=== PATIENT | female | born 1975 | race Caucasian/White ===

== ENCOUNTER 2016-09-20 15:36 | Emergency (ER) | payer OTHER ==
[2016-09-20] MEDS ORDERED: IPRATROPIUM-ALBUTEROL 3 ML NEB INHALATION STA (16:07)
[2016-09-20] MEDS ORDERED: SODIUM CHLORIDE 0.9% 500 ML IV STA (16:07)
[2016-09-20] MEDS ORDERED: BENZONATATE 100 MG CAP PO STA (16:10)
--- NOTE | 2016-09-20 16:10 | ED ---
General Adult HPI - General Chief complaint: Upper Respiratory Infection Stated complaint: MAX/Vomiting Time Seen by Provider: 09/20/16 16:03 Source: patient, RN notes reviewed Mode of arrival: ambulatory Limitations: no limitations - History of Present Illness Initial comments: 40-year-old female presents to the emergency department with a chief complaint of cough cold like symptoms. Patient states she's been sick for about a week or so she was on amoxicillin and steroids however she never got better so she was concerned. Patient states she has had low-grade fevers. Patient states she 's had a few episodes of vomiting a few days ago as well. Patient states she was concerned due to the continued cough so she thought that she should be seen. Patient denies any significant health history related to this. Patient denies any recent chest pain, back pain, abdominal pain, numbness or tingling, dysuria or hematuria, constipation or diarrhea, headaches or visual changes, or any other current symptoms. - Related Data Home Medications Medication Instructions Recorded Confirmed Acetaminophen Tab [Tylenol Tab] 1,000 mg PO Q6HR PRN 09/20/16 09/20/16 Amoxicillin 500 mg PO Q12HR 09/20/16 09/20/16 Levothyroxine Sodium [Synthroid] 75 mcg PO DAILY 09/20/16 09/20/16 Allergies Allergy/AdvReac Type Severity Reaction Status Date / Time aspirin Allergy Rash/Hives Verified 09/20/16 16:14 venom-honey bee Allergy Anaphylaxis Verified 09/20/16 16:14 [bee venom (honey bee)] Review of Systems ROS Statement: Those systems with pertinent positive or pertinent negative responses have been documented in the HPI. ROS Other: All systems not noted in ROS Statement are negative. Past Medical History Past Medical History: Asthma, Thyroid Disorder Additional Past Medical History / Comment(s): WAS CATEGORIZED A PREMIE DUE TO LOW WEIGHT History of Any Multi-Drug Resistant Organisms: None Reported Additional Past Surgical History / Comment(s): D&C X3 Past Psychological History: Anxiety Smoking Status: Former smoker Past Alcohol Use History: Rare Past Drug Use History: None Reported General Exam - General Exam Comments Initial Comments: General: The patient is awake and alert, in no distress, and does not appear acutely ill. Eye: Pupils are equal, round and reactive to light, extra-ocular movements are intact; there is normal conjunctiva bilaterally. No signs of icterus. Ears, nose, mouth and throat: There are moist mucous membranes and no oral lesions. Neck: The neck is supple, there is no tenderness. Cardiovascular: There is a regular rate and rhythm. No murmur, rub or gallop is appreciated. Respiratory: Lungs are clear to auscultation, respirations are non-labored, breath sounds are equal but diminished. No wheezes, stridor, rales, or rhonchi. Gastrointestinal: Soft, non-distended, non-tender abdomen without masses or organomegaly noted. There is no rebound or guarding present. No CVA tenderness. Bowel sounds are unremarkable. Back: There is no tenderness to palpation in the midline. There is no obvious deformity. No rashes noted. Musculoskeletal: Normal ROM, no tenderness, There is no pedal edema. There is no calf tenderness or swelling. Sensation intact. Pulses equal bilaterally 2+. Neurological: CN II-XII intact, There are no obvious motor or sensory deficits. Coordination appears grossly intact. Speech is normal. Skin: Skin is warm and dry and no rashes or lesions are noted. Psychiatric: Cooperative, appropriate mood & affect, normal judgment. Limitations: no limitations Course Vital Signs 09/20/16 09/20/16 09/20/16 15:46 17:13 17:21 Temperature 98.9 F Pulse Rate 110 H 76 76 Respiratory 20 Rate Blood Pressure 135/72 O2 Sat by Pulse 96 Oximetry 09/20/16 17:50 Temperature 104.2 F H Pulse Rate Respiratory Rate Blood Pressure O2 Sat by Pulse Oximetry Medical Decision Making - Medical Decision Making 40-year-old female presents for cough cold runny nose like symptoms. This time patient's lab work and vitals are reviewed. Patient does have a high fever however she is negative for influenza and otherwise negative for any infectious cause. This most likely due to a virus. We did discuss return parameters and follow-up. We discussed Motrin Tylenol. We will give her medication for home to help with the cough. Patient stated that she understood all questions were answered. She will be discharged home. - Lab Data Result diagrams: 09/20/16 17:17 09/20/16 17:17 Lab Results 09/20/16 09/20/16 09/20/16 Range/Units 17:17 17:17 17:17 WBC 8.0 (3.8-10.6) k/uL RBC 4.67 (3.80-5.40) m/uL Hgb 14.1 (11.4-16.0) gm/dL Hct 42.7 (34.0-46.0) % MCV 91.5 (80.0-100.0) fL MCH 30.3 (25.0-35.0) pg MCHC 33.1 (31.0-37.0) g/dL RDW 13.0 (11.5-15.5) % Plt Count 167 (150-450) k/uL Neutrophils % 80 % Lymphocytes % 14 % Monocytes % 4 % Eosinophils % 2 % Basophils % 1 % Neutrophils # 6.4 (1.3-7.7) k/uL Lymphocytes # 1.1 (1.0-4.8) k/uL Monocytes # 0.3 (0-1.0) k/uL Eosinophils # 0.1 (0-0.7) k/uL Basophils # 0.0 (0-0.2) k/uL Sodium 140 (137-145) mmol/L Potassium 4.4 (3.5-5.1) mmol/L Chloride 101 (98-107) mmol/L Carbon Dioxide 28 (22-30) mmol/L Anion Gap 11 mmol/L BUN 11 (7-17) mg/dL Creatinine 0.97 (0.52-1.04) mg/dL Est GFR (MDRD) Af Amer >60 (>60 ml/min/1.73 sqM) Est GFR (MDRD) Non-Af >60 (>60 ml/min/1.73 sqM) Glucose 134 H (74-99) mg/dL Calcium 8.1 L (8.4-10.2) mg/dL Total Bilirubin 0.8 (0.2-1.3) mg/dL AST 29 (14-36) U/L ALT 33 (9-52) U/L Alkaline Phosphatase 83 (38-126) U/L Total Protein 7.0 (6.3-8.2) g/dL Albumin 3.8 (3.5-5.0) g/dL Urine Color Urine Appearance (Clear) Urine pH (5.0-8.0) Ur Specific Reading (1.001-1.035) Urine Protein (Negative) Urine Glucose (UA) (Negative) Urine Ketones (Negative) Urine Blood (Negative) Urine Nitrate (Negative) Urine Bilirubin (Negative) Urine Urobilinogen (<2.0) mg/dL Ur Leukocyte Esterase (Negative) Influenza Type A RNA Not Detected (Not Detectd) Influenza Type B (PCR) Not Detected (Not Detectd) 09/20/16 Range/Units 18:09 WBC (3.8-10.6) k/uL RBC (3.80-5.40) m/uL Hgb (11.4-16.0) gm/dL Hct (34.0-46.0) % MCV (80.0-100.0) fL MCH (25.0-35.0) pg MCHC (31.0-37.0) g/dL RDW (11.5-15.5) % Plt Count (150-450) k/uL Neutrophils % % Lymphocytes % % Monocytes % % Eosinophils % % Basophils % % Neutrophils # (1.3-7.7) k/uL Lymphocytes # (1.0-4.8) k/uL Monocytes # (0-1.0) k/uL Eosinophils # (0-0.7) k/uL Basophils # (0-0.2) k/uL Sodium (137-145) mmol/L Potassium (3.5-5.1) mmol/L Chloride (98-107) mmol/L Carbon Dioxide (22-30) mmol/L Anion Gap mmol/L BUN (7-17) mg/dL Creatinine (0.52-1.04) mg/dL Est GFR (MDRD) Af Amer (>60 ml/min/1.73 sqM) Est GFR (MDRD) Non-Af (>60 ml/min/1.73 sqM) Glucose (74-99) mg/dL Calcium (8.4-10.2) mg/dL Total Bilirubin (0.2-1.3) mg/dL AST (14-36) U/L ALT (9-52) U/L Alkaline Phosphatase (38-126) U/L Total Protein (6.3-8.2) g/dL Albumin (3.5-5.0) g/dL Urine Color Yellow Urine Appearance Clear (Clear) Urine pH 5.5 (5.0-8.0) Ur Specific Reading 1.009 (1.001-1.035) Urine Protein Negative (Negative) Urine Glucose (UA) Negative (Negative) Urine Ketones Negative (Negative) Urine Blood Negative (Negative) Urine Nitrate Negative (Negative) Urine Bilirubin Negative (Negative) Urine Urobilinogen <2.0 (<2.0) mg/dL Ur Leukocyte Esterase Negative (Negative) Influenza Type A RNA (Not Detectd) Influenza Type B (PCR) (Not Detectd) - Radiology Data Radiology results: report reviewed, image reviewed Disposition Clinical Impression: Fever, Viral syndrome Disposition: HOME SELF-CARE Condition: Stable Instructions: Viral Syndrome (ED) Additional Instructions: Please use medication as discussed. Please follow up with family doctor if symptoms have not improved over the next two days. Please return to the emergency room if your symptoms increase or worsen or for any other concerns. Referrals: Raji De La Paz DO [Primary Care Provider] - 1-2 days Time of Disposition: 18:34
--- NOTE | 2016-09-20 16:39 | XR ---
EXAMINATION TYPE: XR chest 2V DATE OF EXAM: 09/20/2016 4:33 PM COMPARISON: 05/21/2016 HISTORY: Fever TECHNIQUE: Frontal and lateral views of the chest are obtained. FINDINGS: Heart and mediastinum are normal. Lungs are clear. Diaphragm is normal. Bony thorax and so ft tissues appear normal. IMPRESSION: Normal chest
[2016-09-20 17:36] LABS: Basophils % (A) 1 %; CH 31.8; CHCM 34.9; Eosinophils # (A) 0.1 k/uL (0-0.7); Eosinophils % (A) 2 %; HCT 42.7 % (34.0-46.0); HGB 14.1 gm/dL (11.4-16.0); Luc # (Auto) 0.06; Luc % (Auto) 1; Lymphocytes # (A) 1.1 k/uL (1.0-4.8); Lymphocytes % (A) 14 %; MCH 30.3 pg (25.0-35.0); MCHC 33.1 g/dL (31.0-37.0); MCV 91.5 fL (80.0-100.0); Mean Platelet Volume 7.6; Monocytes # (A) 0.3 k/uL (0-1.0); Monocytes % (A) 4 %; Neutrophils # (A) 6.4 k/uL (1.3-7.7); Neutrophils % (A) 80 %; RBC 4.67 m/uL (3.80-5.40); WBC (Perox) 8.14
[2016-09-20 17:49] LABS: ALT 33 U/L (9-52); AST 29 U/L (14-36); Alkaline Phosphatase 83 U/L (38-126); Anion Gap 11 mmol/L; Blood Urea Nitrogen 11 mg/dL (7-17); Calcium 8.1 mg/dL (8.4-10.2); Carbon Dioxide 28 mmol/L (22-30); Chloride 101 mmol/L (98-107); Glucose 134 mg/dL (74-99); Non-African American GFR(MDRD) >60 (>60 ml/min/1.73 sqM); Sodium 140 mmol/L (137-145); Total Bilirubin 0.8 mg/dL (0.2-1.3)
[2016-09-20] MEDS ORDERED: ACETAMINOPHEN TAB 500 MG TAB PO STA (17:51)
[2016-09-20 17:52] LABS: Potassium 4.4 mmol/L (3.5-5.1)
[2016-09-20 18:23] LABS: Appearance,Urine Clear (Clear); Bilirubin,Urine Negative (Negative); Glucose,Urine (UA) Negative (Negative); Ketones,Urine Negative (Negative); Leukocyte Esterase,Urine Negative (Negative); Nitrite,Urine Negative (Negative); PH, Urine 5.5 (5.0-8.0); Protein,Urine Negative (Negative); Specific Gravity,Urine 1.009 (1.001-1.035); UA Billing (MACRO vs. MICRO) CHEM; Urobilinogen,Urine <2.0 mg/dL (<2.0)
[2016-09-20] MEDS ORDERED: IBUPROFEN 600 MG STARTER PACK 4 TAB BTL PO STA (18:34)
[2016-09-20 19:04] VITALS: BP 125/67; PULSE 116; RESP 16; TEMP 102.4
== END 2016-09-20 19:13 | disposition home or self-care (01) ==
LOC: EC 15:36
DX: B34.9 Viral infection, unspecified (principal); E07.9 Disorder of thyroid, unspecified; Z79.899 Other long term (current) drug therapy; Z88.6 Allergy status to analgesic agent; Z87.891 Personal history of nicotine dependence
CPT/HCPCS: 36415; 71020; 80053; 81003; 85025; 87040; 87086; 87502; 94640; 96360; 96361; 99284

== ENCOUNTER 2016-09-22 04:05 | Emergency (ER) | payer OTHER ==
[2016-09-22 04:16] VITALS: BP 114/59; RESP 18; TEMP 97.7
[2016-09-22] MEDS ORDERED: SODIUM CHLORIDE 0.9% 500 ML IV STA (04:30)
[2016-09-22] MEDS ORDERED: ACETAMINOPHEN IV (For NPO) 1,000 MG in SALINE 1 100ML.BAG IVPB STA (04:31)
[2016-09-22] MEDS ORDERED: IPRATROPIUM-ALBUTEROL 3 ML NEB INHALATION STA (04:31)
--- NOTE | 2016-09-22 04:34 | ED ---
General Adult HPI - General Chief complaint: Upper Respiratory Infection Stated complaint: vomiting Time Seen by Provider: 09/22/16 04:15 Source: patient, RN notes reviewed, old records reviewed Mode of arrival: ambulatory Limitations: no limitations - History of Present Illness Initial comments: This is a 40-year-old female with a history of asthma who was seen here 2 days ago and diagnosed with a viral infection after one week of antibiotics and steroids and not feeling that she was getting better who is back today complaining of a persistent cough she also had nausea vomiting and midepigastric pain. She states the pain is 4-5-6/10 in severity. Aching in nature not anywhere else on her abdomen. She has a cough with the middle minimal amount of phlegm no fevers chills or sweats or other symptoms no overt chest pain. - Related Data Home Medications Medication Instructions Recorded Confirmed Acetaminophen Tab [Tylenol Tab] 1,000 mg PO Q6HR PRN 09/20/16 09/22/16 Amoxicillin 500 mg PO Q12HR 09/20/16 09/22/16 Levothyroxine Sodium [Synthroid] 75 mcg PO DAILY 09/20/16 09/22/16 Previous Rx's Medication Instructions Recorded Amoxicillin/Potassium Clav 1 tab PO Q12HR #20 tab 09/22/16 [Augmentin 875-125 Tablet] predniSONE 20 mg PO BID #10 tab 09/22/16 Allergies Allergy/AdvReac Type Severity Reaction Status Date / Time aspirin Allergy Rash/Hives Verified 09/22/16 04:16 venom-honey bee Allergy Anaphylaxis Verified 09/22/16 04:16 [bee venom (honey bee)] Review of Systems ROS Statement: Those systems with pertinent positive or pertinent negative responses have been documented in the HPI. ROS Other: All systems not noted in ROS Statement are negative. Past Medical History Past Medical History: Asthma, Thyroid Disorder Additional Past Medical History / Comment(s): WAS CATEGORIZED A PREMIE DUE TO LOW WEIGHT History of Any Multi-Drug Resistant Organisms: None Reported Additional Past Surgical History / Comment(s): D&C X3 Past Psychological History: Anxiety Smoking Status: Former smoker Past Alcohol Use History: Rare Past Drug Use History: None Reported General Exam - General Exam Comments Initial Comments: This is a well-developed well-nourished awake alert female Limitations: no limitations General appearance: alert, in no apparent distress Head exam: Present: atraumatic, normocephalic, normal inspection Eye exam: Present: normal appearance, PERRL, EOMI. Absent: scleral icterus, conjunctival injection, periorbital swelling ENT exam: Present: normal exam, mucous membranes moist Neck exam: Present: normal inspection. Absent: tenderness, meningismus, lymphadenopathy Respiratory exam: Present: wheezes, decreased breath sounds. Absent: respiratory distress, rales, rhonchi, stridor Cardiovascular Exam: Present: regular rate, normal rhythm, normal heart sounds. Absent: systolic murmur, diastolic murmur, rubs, gallop, clicks GI/Abdominal exam: Present: soft, tenderness (Mild epigastric tenderness to palpation no guarding rebound masses or bruits), normal bowel sounds. Absent: distended, guarding, rebound, rigid Extremities exam: Present: normal inspection, full ROM, normal capillary refill. Absent: tenderness, pedal edema, joint swelling, calf tenderness Back exam: Present: normal inspection Neurological exam: Present: alert, oriented X3, CN II-XII intact Psychiatric exam: Present: normal affect, normal mood Skin exam: Present: warm, dry, intact, normal color. Absent: rash Course Vital Signs 09/22/16 09/22/16 09/22/16 04:11 04:55 05:04 Temperature 97.7 F Pulse Rate 77 76 76 Respiratory 18 Rate Blood Pressure 114/59 O2 Sat by Pulse 95 Oximetry Medical Decision Making - Medical Decision Making Patient is feeling much improved she will be discharged placed on antibiotic steroids she does have an inhaler is new at home. - Lab Data Result diagrams: 09/22/16 05:00 09/22/16 05:00 Lab Results 09/22/16 09/22/16 Range/Units 05:00 05:00 WBC 5.0 (3.8-10.6) k/uL RBC 4.65 (3.80-5.40) m/uL Hgb 14.2 (11.4-16.0) gm/dL Hct 42.4 (34.0-46.0) % MCV 91.3 (80.0-100.0) fL MCH 30.5 (25.0-35.0) pg MCHC 33.4 (31.0-37.0) g/dL RDW 13.0 (11.5-15.5) % Plt Count 156 (150-450) k/uL Neutrophils % 55 % Lymphocytes % 26 % Monocytes % 6 % Eosinophils % 9 % Basophils % 1 % Neutrophils # 2.7 (1.3-7.7) k/uL Lymphocytes # 1.3 (1.0-4.8) k/uL Monocytes # 0.3 (0-1.0) k/uL Eosinophils # 0.4 (0-0.7) k/uL Basophils # 0.0 (0-0.2) k/uL Sodium 144 (137-145) mmol/L Potassium 3.9 (3.5-5.1) mmol/L Chloride 104 (98-107) mmol/L Carbon Dioxide 31 H (22-30) mmol/L Anion Gap 9 mmol/L BUN 12 (7-17) mg/dL Creatinine 0.96 (0.52-1.04) mg/dL Est GFR (MDRD) Af Amer >60 (>60 ml/min/1.73 sqM) Est GFR (MDRD) Non-Af >60 (>60 ml/min/1.73 sqM) Glucose 170 H (74-99) mg/dL Calcium 8.4 (8.4-10.2) mg/dL Magnesium 2.0 (1.6-2.3) mg/dL Total Bilirubin 0.6 (0.2-1.3) mg/dL AST 80 H (14-36) U/L ALT 62 H (9-52) U/L Alkaline Phosphatase 97 (38-126) U/L Total Protein 6.4 (6.3-8.2) g/dL Albumin 3.4 L (3.5-5.0) g/dL Amylase 48 (30-110) U/L Lipase 199 (23-300) U/L - Radiology Data Radiology results: report reviewed (I did review the imaging and report there is some evidence of a limited infiltrate in the right infrahilar region.), image reviewed Disposition Clinical Impression: Pneumonia, Asthmatic bronchitis Disposition: HOME SELF-CARE Condition: Good Instructions: Pneumonia (ED), Bronchospasm (ED) Prescriptions: Amoxicillin/Potassium Clav [Augmentin 875-125 Tablet] 1 tab PO Q12HR #20 tab predniSONE 20 mg PO BID #10 tab
[2016-09-22 04:56] VITALS: PULSE 76
[2016-09-22 05:14] LABS: Basophils % (A) 1 %; CH 31.3; CHCM 34.4; Eosinophils # (A) 0.4 k/uL (0-0.7); Eosinophils % (A) 9 %; HCT 42.4 % (34.0-46.0); HDW 2.89; HGB 14.2 gm/dL (11.4-16.0); Luc % (Auto) 4; Lymphocytes # (A) 1.3 k/uL (1.0-4.8); Lymphocytes % (A) 26 %; MCH 30.5 pg (25.0-35.0); MCHC 33.4 g/dL (31.0-37.0); MCV 91.3 fL (80.0-100.0); Mean Platelet Volume 7.3; Monocytes # (A) 0.3 k/uL (0-1.0); Monocytes % (A) 6 %; Neutrophils # (A) 2.7 k/uL (1.3-7.7); Neutrophils % (A) 55 %; RBC 4.65 m/uL (3.80-5.40); WBC (Perox) 4.84
[2016-09-22 05:21] LABS: ALT 62 U/L (9-52); AST 80 U/L (14-36); Alkaline Phosphatase 97 U/L (38-126); Amylase 48 U/L (30-110); Anion Gap 9 mmol/L; Blood Urea Nitrogen 12 mg/dL (7-17); Calcium 8.4 mg/dL (8.4-10.2); Carbon Dioxide 31 mmol/L (22-30); Chloride 104 mmol/L (98-107); Glucose 170 mg/dL (74-99); Non-African American GFR(MDRD) >60 (>60 ml/min/1.73 sqM); Potassium 3.9 mmol/L (3.5-5.1); Sodium 144 mmol/L (137-145); Total Bilirubin 0.6 mg/dL (0.2-1.3); Total Protein 6.4 g/dL (6.3-8.2)
--- NOTE | 2016-09-22 05:23 | XR ---
EXAMINATION TYPE: XR chest 2V DATE OF EXAM: 09/22/2016 5:15 AM COMPARISON: 09/20/2016 HISTORY: Cough and vomiting TECHNIQUE: Frontal and lateral views of the chest are obtained. FINDINGS: Faint opacities noted in the right infrahilar area and there is possibility of mild infiltrate and at electasis. There is no pneumothorax or pleural effusion. The study is somewhat limited due to shape of the thorax with possible pectus excavatum changes. The cardiac silhouette size is within normal limits. The osseous structures are intact. IMPRESSION: 1. Possible mild infiltrate and atelectasis in the right infrahilar area..
--- NOTE | 2016-09-22 05:25 | XR ---
EXAMINATION TYPE: XR abdomen 1V DATE OF EXAM: 09/22/2016 5:15 AM . CLINICAL HISTORY: Cough and vomiting for last 2 weeks TECHNIQUE: Single supine KUB image of the abdomen is obtained. COMPARISON: None. FINDINGS: Scattered gas is seen in non-distended small bowel loops. There is [id number] fecal material and gas in the colonic bowel loops.. There is no visceromegaly, pneumoperitoneum, or abnor mal calcification appreciated. The lung bases are clear and the osseous structures are intact. IMPRESSION: [id number] fecal material in the colonic bowel loops. Overall nonobstructive bowel gas pattern.
== END 2016-09-22 06:22 | disposition home or self-care (01) ==
LOC: EC 04:05
DX: J18.9 Pneumonia, unspecified organism (principal); J45.909 Unspecified asthma, uncomplicated; Z87.891 Personal history of nicotine dependence; Z88.8 Allergy status to other drugs, medicaments and biological substances; Z91.030 Bee allergy status; Z79.899 Other long term (current) drug therapy; E07.9 Disorder of thyroid, unspecified
CPT/HCPCS: 99283; 96374; 96361; 36415; 94640; 80053; 82150; 83690; 83735; 85025; 71020; 74000; J0131

== ENCOUNTER 2017-02-23 04:01 | Emergency (ER) | payer OTHER ==
[2017-02-23 04:13] VITALS: BP 119/71; PULSE 111; RESP 18; TEMP 100.1
[2017-02-23] MEDS ORDERED: ACETAMINOPHEN TAB 500 MG TAB PO STA (04:14)
[2017-02-23] MEDS ORDERED: IBUPROFEN 800 MG TAB PO STA (04:14)
[2017-02-23] MEDS ORDERED: AMOXIC-POT CLAV 875-125MG 1 EACH TAB PO STA (04:14)
[2017-02-23] MEDS ORDERED: DEXAMETHASONE SOD PHOSPHATE 10 MG/ML 1 ML VIAL IM STA (04:14)
--- NOTE | 2017-02-23 04:16 | ED ---
General Adult HPI - General Chief complaint: ENT Stated complaint: Sore Throat/Fever Time Seen by Provider: 02/23/17 04:09 Source: patient, RN notes reviewed, old records reviewed Mode of arrival: ambulatory Limitations: no limitations - History of Present Illness Initial comments: This is a 41-year-old female to the ER for evaluation of sore throat. Patient sore throat and fever. Difficulty swallowing. 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 Patient states she is not feeling well, is able to open her mouth and swallow but it is painful. No prior history of similar symptoms. No other complaints of shortness of breath no cough. - Related Data Home Medications Medication Instructions Recorded Confirmed Acetaminophen Tab [Tylenol Tab] 1,000 mg PO Q6HR PRN 09/20/16 02/23/17 Previous Rx's Medication Instructions Recorded Amoxicillin/Potassium Clav 1 tab PO Q12HR #14 tab 02/23/17 [Augmentin 875-125 Tablet] Allergies Allergy/AdvReac Type Severity Reaction Status Date / Time aspirin Allergy Rash/Hives Verified 02/23/17 04:13 venom-honey bee Allergy Anaphylaxis Verified 02/23/17 04:13 [bee venom (honey bee)] Review of Systems ROS Statement: Those systems with pertinent positive or pertinent negative responses have been documented in the HPI. ROS Other: All systems not noted in ROS Statement are negative. Past Medical History Past Medical History: Asthma, Thyroid Disorder Additional Past Medical History / Comment(s): WAS CATEGORIZED A PREMIE DUE TO LOW WEIGHT History of Any Multi-Drug Resistant Organisms: None Reported Additional Past Surgical History / Comment(s): D&C X3 Past Psychological History: Anxiety Smoking Status: Never smoker Past Alcohol Use History: Rare Past Drug Use History: None Reported General Exam Limitations: no limitations General appearance: alert, in no apparent distress Head exam: Present: atraumatic, normocephalic, normal inspection Eye exam: Present: normal appearance, PERRL, EOMI. Absent: scleral icterus, conjunctival injection, periorbital swelling ENT exam: Present: normal exam, mucous membranes moist, other (Differential erythema with exudate bilateral) Neck exam: Present: normal inspection. Absent: tenderness, meningismus, lymphadenopathy Respiratory exam: Present: normal lung sounds bilaterally. Absent: respiratory distress, wheezes, rales, rhonchi, stridor Cardiovascular Exam: Present: regular rate, normal rhythm, normal heart sounds. Absent: systolic murmur, diastolic murmur, rubs, gallop, clicks GI/Abdominal exam: Present: soft, normal bowel sounds. Absent: distended, tenderness, guarding, rebound, rigid Extremities exam: Present: normal inspection, full ROM, normal capillary refill. Absent: tenderness, pedal edema, joint swelling, calf tenderness Back exam: Present: normal inspection Neurological exam: Present: alert, oriented X3, CN II-XII intact Psychiatric exam: Present: normal affect, normal mood Skin exam: Present: warm, dry, intact, normal color. Absent: rash Course Vital Signs 02/23/17 04:11 Temperature 100.1 F H Pulse Rate 111 H Respiratory 18 Rate Blood Pressure 119/71 O2 Sat by Pulse 98 Oximetry Medical Decision Making - Medical Decision Making 41 female DLS fever sore throat, positive pharyngitis exudate on exam, patient treated appropriately with antibiotics and will be discharged home Disposition Clinical Impression: Streptococcal sore throat Disposition: HOME SELF-CARE Condition: Good Instructions: Strep Throat (ED) Prescriptions: Amoxicillin/Potassium Clav [Augmentin 875-125 Tablet] 1 tab PO Q12HR #14 tab Referrals: Raji De La Paz DO [Primary Care Provider] - 1-2 days
== END 2017-02-23 04:28 | disposition home or self-care (01) ==
LOC: EC 04:01
DX: J02.0 Streptococcal pharyngitis (principal); Z88.6 Allergy status to analgesic agent; Z91.030 Bee allergy status
CPT/HCPCS: 99283; 96372; J1100

== ENCOUNTER 2017-03-05 19:13 | Emergency (ER) | payer OTHER ==
[2017-03-05 19:19] VITALS: BP 115/71; PULSE 94; RESP 18; TEMP 97.5
[2017-03-05] MEDS ORDERED: predniSONE 50 MG TAB PO STA (19:42)
[2017-03-05] MEDS ORDERED: diphenhydrAMINE 50 MG CAP PO STA (19:42)
[2017-03-05] MEDS ORDERED: FAMOTIDINE 20 MG TAB PO STA (19:43)
--- NOTE | 2017-03-05 19:51 | ED ---
Allergic Reaction HPI - General Chief complaint: Allergic Reaction Stated complaint: hives Time Seen by Provider: 03/05/17 19:20 Source: patient, RN notes reviewed Mode of arrival: ambulatory Limitations: no limitations - History of Present Illness Initial Comments: Patient is a 41-year-old female presents to the emergency room for evaluation of rash. Patient states about 15 minutes before arrival she broke out into hives on her neck, chest, bilateral arms and legs. Patient states that she tried a new brand of baked beans. Patient states she thinks she had an ALLERGIC reaction to it. Patient denies shortness of breath or trouble breathing. Patient states the rash is itchy. Patient denies taking Benadryl or any other medications after she noticed the rash. Patient denies new shampoos, body washes, conditioners, detergents, new plants or pets in the household. - Related Data Previous Rx's Medication Instructions Recorded Famotidine [Pepcid] 20 mg PO DAILY #4 tablet 03/05/17 predniSONE 50 mg PO DAILY #4 tablet 03/05/17 Allergies Allergy/AdvReac Type Severity Reaction Status Date / Time aspirin Allergy Rash/Hives Verified 03/05/17 19:19 venom-honey bee Allergy Anaphylaxis Verified 03/05/17 19:19 [bee venom (honey bee)] Review of Systems ROS Statement: Those systems with pertinent positive or pertinent negative responses have been documented in the HPI. ROS Other: All systems not noted in ROS Statement are negative. Past Medical History Past Medical History: Asthma, Thyroid Disorder Additional Past Medical History / Comment(s): WAS CATEGORIZED A PREMIE DUE TO LOW WEIGHT History of Any Multi-Drug Resistant Organisms: None Reported Additional Past Surgical History / Comment(s): D&C X3 Past Psychological History: Anxiety Smoking Status: Never smoker Past Alcohol Use History: Rare Past Drug Use History: None Reported General Exam - General Exam Comments Initial Comments: Sitting in exam room, no acute distress. Limitations: no limitations General appearance: alert, in no apparent distress Head exam: Present: atraumatic, normocephalic, normal inspection Eye exam: Present: normal appearance ENT exam: Present: normal exam Neck exam: Present: normal inspection Respiratory exam: Present: normal lung sounds bilaterally. Absent: respiratory distress Cardiovascular Exam: Present: regular rate, normal rhythm, normal heart sounds Extremities exam: Present: normal inspection Back exam: Present: normal inspection Neurological exam: Present: alert, oriented X3, CN II-XII intact Psychiatric exam: Present: normal affect, normal mood Skin exam: Present: warm, dry, intact, normal color, urticaria (Multiple urticaria over neck, chest, bilateral arms and legs) Course Vital Signs 03/05/17 19:17 Temperature 97.5 F L Pulse Rate 94 Respiratory 18 Rate Blood Pressure 115/71 O2 Sat by Pulse 95 Oximetry Medical Decision Making - Medical Decision Making Patient is a 41-year-old female presents to the emergency room for evaluation of rash. Rash consistent with hives. Patient states she recently tried a new brand of baked beans and thinks this will cause a rash. Advised patient to refrain from that brand of baked beans. Patient will be sent home with prednisone and Pepcid and advised to take Benadryl as needed. Patient states she understands that was discussed with her. Return parameters discussed. Disposition Clinical Impression: Urticaria Disposition: HOME SELF-CARE Condition: Good Instructions: Urticaria (ED) Additional Instructions: Take medications as directed. Take Benadryl as needed every 4-6 hours. Cool baths/showers. Please follow up with primary care provider in 1-2 days. If any new symptom arises or symptoms worsen, return to ER as soon as possible. Prescriptions: Famotidine [Pepcid] 20 mg PO DAILY #4 tablet predniSONE 50 mg PO DAILY #4 tablet Referrals: Raji De La Paz DO [Primary Care Provider] - 1-2 days Time of Disposition: 19:47
== END 2017-03-05 20:03 | disposition home or self-care (01) ==
LOC: EC 19:13
DX: L50.9 Urticaria, unspecified (principal); Z88.6 Allergy status to analgesic agent; Z91.030 Bee allergy status
CPT/HCPCS: 99283; J7512

== ENCOUNTER → 2017-06-27 | Outpatient (CLI) | payer OTHER ==
[2017-06-27 09:56] LABS: Basophils # (A) 0.1 k/uL (0-0.2); Basophils % (A) 1 %; CH 30.7; CHCM 32.9; Eosinophils # (A) 0.4 k/uL (0-0.7); Eosinophils % (A) 4 %; HCT 45.7 % (34.0-46.0); HGB 14.7 gm/dL (11.4-16.0); Luc # (Auto) 0.13; Luc % (Auto) 2; Lymphocytes # (A) 1.9 k/uL (1.0-4.8); Lymphocytes % (A) 24 %; MCH 30.1 pg (25.0-35.0); MCHC 32.1 g/dL (31.0-37.0); MCV 93.8 fL (80.0-100.0); Mean Platelet Volume 7.6; Monocytes # (A) 0.5 k/uL (0-1.0); Monocytes % (A) 6 %; Neutrophils % (A) 64 %; RBC 4.87 m/uL (3.80-5.40); RDW 13.8 % (11.5-15.5); WBC 7.9 k/uL (3.8-10.6); WBC (Perox) 7.84
[2017-06-27 10:05] LABS: ALT 33 U/L (9-52); AST 18 U/L (14-36); Alkaline Phosphatase 88 U/L (38-126); Anion Gap 8 mmol/L; Blood Urea Nitrogen 14 mg/dL (7-17); Calcium 9.1 mg/dL (8.4-10.2); Carbon Dioxide 26 mmol/L (22-30); Chloride 107 mmol/L (98-107); Cholesterol 196 mg/dL (<200); Glucose 149 mg/dL (74-99); HDL Cholesterol 36 mg/dL (40-60); Non-African American GFR(MDRD) >60 (>60 ml/min/1.73 sqM); Potassium 4.5 mmol/L (3.5-5.1); Sodium 141 mmol/L (137-145); Total Bilirubin 0.4 mg/dL (0.2-1.3); Total Protein 6.6 g/dL (6.3-8.2)
== END | disposition home or self-care (01) ==
LOC: LABWHC1 08:56
PROVIDERS: ATTEND Family Medicine
DX: Z13.220 Encounter for screening for lipoid disorders (principal); Q99.9 Chromosomal abnormality, unspecified; Z87.898 Personal history of other specified conditions
CPT/HCPCS: 36415; 80053; 80061; 82306; 84439; 84443; 85025

== ENCOUNTER 2017-09-16 11:24 | Emergency (ER) | payer SELFPAY ==
--- NOTE | 2017-09-16 12:29 | ED ---
General Adult HPI - General Chief complaint: Chest Pain Stated complaint: arm numbness Time Seen by Provider: 09/16/17 11:54 Source: patient, RN notes reviewed Mode of arrival: ambulatory Limitations: no limitations - History of Present Illness Initial comments: Patient 41-year-old female who presents emergency room today with a chief complaint of cough congestion over the last 2 days. She does admit to positive sputum production. Admits to bodyaches. Admits to feeling hot and cold. States that earlier today partially 10 AM began feeling some left-sided chest pain with some numbness to mid sensation going to left arm. She states it lasted approximately 10 minutes. She states still feeling some discomfort to the left side of the chest wall. Patient denies any other complaints or symptoms. Patient denies any recent shortness of breath, back pain, abdominal pain, nausea or vomiting, numbness or tingling, dysuria or hematuria, constipation or diarrhea, headaches or visual changes, or any other complaints. - Related Data Home Medications Medication Instructions Recorded Confirmed Acetaminophen Tab [Tylenol Tab] 650 mg PO Q6H PRN 09/16/17 09/16/17 diphenhydrAMINE HCL [Benadryl] 25 mg PO DAILY PRN 09/16/17 09/16/17 Previous Rx's Medication Instructions Recorded Oseltamivir [Tamiflu] 75 mg PO Q12HR 5 Days cap 09/16/17 Allergies Allergy/AdvReac Type Severity Reaction Status Date / Time aspirin Allergy Anaphylaxis Verified 09/16/17 12:47 venom-honey bee Allergy Anaphylaxis Verified 09/16/17 12:47 [bee venom (honey bee)] Review of Systems ROS Statement: Those systems with pertinent positive or pertinent negative responses have been documented in the HPI. ROS Other: All systems not noted in ROS Statement are negative. Past Medical History Past Medical History: Asthma, Thyroid Disorder Additional Past Medical History / Comment(s): WAS CATEGORIZED A PREMIE DUE TO LOW WEIGHT History of Any Multi-Drug Resistant Organisms: None Reported Additional Past Surgical History / Comment(s): D&C X3 Past Psychological History: Anxiety Smoking Status: Never smoker Past Alcohol Use History: Rare Past Drug Use History: None Reported General Exam - General Exam Comments Initial Comments: General: The patient is awake and alert, in no distress, and does not appear acutely ill. Eye: Pupils are equal, round and reactive to light, extra-ocular movements are intact. No nystagmus. There is normal conjunctiva bilaterally. No signs of icterus. Ears, nose, mouth and throat: There are moist mucous membranes and no oral lesions. Neck: The neck is supple, there is no tenderness or JVD. Cardiovascular: There is a regular rate and rhythm. No murmur, rub or gallop is appreciated. Mild tenderness to the anterior left-sided chest wall. This does reproduce her pain. Respiratory: Lungs are clear to auscultation, respirations are non-labored, breath sounds are equal. No wheezes, stridor, rales, or rhonchi. Gastrointestinal: Soft, non-distended, non-tender abdomen without masses or organomegaly noted. There is no rebound or guarding present. No CVA tenderness. Bowel sounds are unremarkable. Musculoskeletal: Normal ROM. Strength 5/5. Sensation intact. Pulses equal bilaterally 2+. Neurological: A&O x 3. CN II-XII intact, There are no obvious motor or sensory deficits. Coordination appears grossly intact. Speech is normal. Skin: Skin is warm and dry and no rashes or lesions are noted. Psychiatric: Cooperative, appropriate mood & affect, normal judgment. Limitations: no limitations Course Vital Signs 09/16/17 09/16/17 09/16/17 11:42 12:19 12:49 Temperature 98.9 F Pulse Rate 79 Respiratory 18 24 18 Rate Blood Pressure 144/87 O2 Sat by Pulse 100 Oximetry 09/16/17 09/16/17 14:27 15:00 Temperature 97.5 F L Pulse Rate 66 64 Respiratory 18 20 Rate Blood Pressure 143/64 O2 Sat by Pulse 99 97 Oximetry EKG Findings - EKG Comments: EKG Findings:: EKG performed at 1201: Shows normal sinus rhythm at 60 beats per minute. [place] 172 QRS 66. QT/QTC 384/384. No acute ST changes. Medical Decision Making - Medical Decision Making Patient reexamined at this time shows no signs of distress. She rested comfortably here in the emergency room. Patient daughter was seen here the emergency room test positive for influenza. Patient's symptoms are consistent with influenza here in emergency room. Her cardiac enzymes are negative. Her symptoms started at 10 AM. She has no chest pain at this time she states that her last for approximately 15 minutes. Patient did have a repeat set of cardiac enzymes obtained which are negative. Results were discussed with patient. EKG shows no changes. Patient will be discharged home to follow-up family doctor will be started on Tamiflu for her symptoms. Advised Tylenol ibuprofen for body aches and any fevers. Advised return if symptoms increase worsen. - Lab Data Result diagrams: 09/16/17 12:15 09/16/17 12:15 Lab Results 09/16/17 09/16/17 09/16/17 Range/Units 12:15 12:15 12:15 WBC 7.8 (3.8-10.6) k/uL RBC 4.73 (3.80-5.40) m/uL Hgb 14.5 (11.4-16.0) gm/dL Hct 43.0 (34.0-46.0) % MCV 91.0 (80.0-100.0) fL MCH 30.7 (25.0-35.0) pg MCHC 33.8 (31.0-37.0) g/dL RDW 12.8 (11.5-15.5) % Plt Count 220 (150-450) k/uL Neutrophils % 58 % Lymphocytes % 29 % Monocytes % 5 % Eosinophils % 5 % Basophils % 1 % Neutrophils # 4.5 (1.3-7.7) k/uL Lymphocytes # 2.3 (1.0-4.8) k/uL Monocytes # 0.4 (0-1.0) k/uL Eosinophils # 0.4 (0-0.7) k/uL Basophils # 0.0 (0-0.2) k/uL PT (9.0-12.0) sec INR (<1.2) APTT (22.0-30.0) sec Sodium 144 (137-145) mmol/L Potassium 4.0 (3.5-5.1) mmol/L Chloride 105 (98-107) mmol/L Carbon Dioxide 29 (22-30) mmol/L Anion Gap 10 mmol/L BUN 16 (7-17) mg/dL Creatinine 0.80 (0.52-1.04) mg/dL Est GFR (MDRD) Af Amer >60 (>60 ml/min/1.73 sqM) Est GFR (MDRD) Non-Af >60 (>60 ml/min/1.73 sqM) Glucose 113 H (74-99) mg/dL Calcium 9.0 (8.4-10.2) mg/dL Magnesium 1.9 (1.6-2.3) mg/dL Total Bilirubin 0.6 (0.2-1.3) mg/dL AST 24 (14-36) U/L ALT 26 (9-52) U/L Alkaline Phosphatase 95 (38-126) U/L Total Creatine Kinase 51 (30-135) U/L CK-MB (CK-2) 0.4 (0.0-2.4) ng/mL CK-MB (CK-2) Rel Index 0.8 Troponin I <0.012 (0.000-0.034) ng/mL Total Protein 6.9 (6.3-8.2) g/dL Albumin 3.9 (3.5-5.0) g/dL Influenza Type A RNA (Not Detectd) Influenza Type B (PCR) (Not Detectd) 09/16/17 09/16/17 09/16/17 Range/Units 12:15 12:15 14:20 WBC (3.8-10.6) k/uL RBC (3.80-5.40) m/uL Hgb (11.4-16.0) gm/dL Hct (34.0-46.0) % MCV (80.0-100.0) fL MCH (25.0-35.0) pg MCHC (31.0-37.0) g/dL RDW (11.5-15.5) % Plt Count (150-450) k/uL Neutrophils % % Lymphocytes % % Monocytes % % Eosinophils % % Basophils % % Neutrophils # (1.3-7.7) k/uL Lymphocytes # (1.0-4.8) k/uL Monocytes # (0-1.0) k/uL Eosinophils # (0-0.7) k/uL Basophils # (0-0.2) k/uL PT 11.5 (9.0-12.0) sec INR 1.2 H (<1.2) APTT 24.1 (22.0-30.0) sec Sodium (137-145) mmol/L Potassium (3.5-5.1) mmol/L Chloride (98-107) mmol/L Carbon Dioxide (22-30) mmol/L Anion Gap mmol/L BUN (7-17) mg/dL Creatinine (0.52-1.04) mg/dL Est GFR (MDRD) Af Amer (>60 ml/min/1.73 sqM) Est GFR (MDRD) Non-Af (>60 ml/min/1.73 sqM) Glucose (74-99) mg/dL Calcium (8.4-10.2) mg/dL Magnesium (1.6-2.3) mg/dL Total Bilirubin (0.2-1.3) mg/dL AST (14-36) U/L ALT (9-52) U/L Alkaline Phosphatase (38-126) U/L Total Creatine Kinase 43 (30-135) U/L CK-MB (CK-2) 0.3 (0.0-2.4) ng/mL CK-MB (CK-2) Rel Index 0.7 Troponin I <0.012 (0.000-0.034) ng/mL Total Protein (6.3-8.2) g/dL Albumin (3.5-5.0) g/dL Influenza Type A RNA Not Detected (Not Detectd) Influenza Type B (PCR) Not Detected (Not Detectd) Disposition Clinical Impression: Influenza Disposition: HOME SELF-CARE Condition: Good Instructions: Influenza (ED) Additional Instructions: Please use medication as prescribed. Please follow up with the family doctor in the next 1-2 days. Please return to emergency room if any symptoms increase or worsen or for any other concerns. Prescriptions: Oseltamivir [Tamiflu] 75 mg PO Q12HR 5 Days cap Referrals: None,Stated [Primary Care Provider] - 1-2 days Ranjan Holloway DO [STAFF PHYSICIAN] - 1-2 days Time of Disposition: 15:46
[2017-09-16 12:33] LABS: Basophils % (A) 1 %; Eosinophils # (A) 0.4 k/uL (0-0.7); Eosinophils % (A) 5 %; HGB 14.5 gm/dL (11.4-16.0); Lymphocytes # (A) 2.3 k/uL (1.0-4.8); Lymphocytes % (A) 29 %; MCH 30.7 pg (25.0-35.0); MCHC 33.8 g/dL (31.0-37.0); Mean Platelet Volume 7.6; Monocytes # (A) 0.4 k/uL (0-1.0); Monocytes % (A) 5 %; Neutrophils # (A) 4.5 k/uL (1.3-7.7); Neutrophils % (A) 58 %; Platelet Count 220 k/uL (150-450); RBC 4.73 m/uL (3.80-5.40); RDW 12.8 % (11.5-15.5); WBC 7.8 k/uL (3.8-10.6)
--- NOTE | 2017-09-16 12:38 | XR ---
EXAMINATION TYPE: XR chest 2V DATE OF EXAM: 09/16/2017 COMPARISON: Chest x-ray September 22, 2016 HISTORY: Chest pain per order. Flulike symptoms per patient. TECHNIQUE: Frontal and lateral views of the chest are obtained. FINDINGS: There is no focal air space opacity, pleural effusion, or pneumothorax seen. The cardiac silhouette size is within normal limits. Spine is straightened on lateral view similar to prior. IMPRESSION: No suspicious acute cardiopulmonary process on current study.
[2017-09-16 13:00] LABS: Creatine Kinase 51 U/L (30-135)
[2017-09-16 13:03] LABS: INR 1.2 (<1.2); Partial Thromboplastin Time 24.1 sec (22.0-30.0); Prothrombin Time 11.5 sec (9.0-12.0)
[2017-09-16 13:12] LABS: ALT 26 U/L (9-52); AST 24 U/L (14-36); Albumin 3.9 g/dL (3.5-5.0); Alkaline Phosphatase 95 U/L (38-126); Anion Gap 10 mmol/L; Blood Urea Nitrogen 16 mg/dL (7-17); Carbon Dioxide 29 mmol/L (22-30); Chloride 105 mmol/L (98-107); Creatine Kinase MB 0.4 ng/mL (0.0-2.4); Glucose 113 mg/dL (74-99); Magnesium 1.9 mg/dL (1.6-2.3); Sodium 144 mmol/L (137-145); Total Bilirubin 0.6 mg/dL (0.2-1.3); Total Protein 6.9 g/dL (6.3-8.2); Troponin I <0.012 ng/mL (0.000-0.034)
[2017-09-16 15:04] LABS: Creatine Kinase 43 U/L (30-135)
[2017-09-16 15:16] LABS: Creatine Kinase MB 0.3 ng/mL (0.0-2.4); Troponin I <0.012 ng/mL (0.000-0.034)
[2017-09-16 15:56] VITALS: BP 133/71; PULSE 57; RESP 12; TEMP 98.5
== END 2017-09-16 16:00 | disposition home or self-care (01) ==
LOC: EC 11:24
DX: J11.1 Influenza due to unidentified influenza virus with other respiratory manifestations (principal); R20.0 Anesthesia of skin; Z88.6 Allergy status to analgesic agent; Z91.030 Bee allergy status
CPT/HCPCS: 36415; 71046; 80053; 82550; 82553; 83735; 84484; 85025; 85610; 85730; 87502; 93005; 99285

== ENCOUNTER 2017-11-29 11:28 | Emergency (ER) | payer OTHER ==
[2017-11-29 11:32] VITALS: BP 123/70; PULSE 72; RESP 20; TEMP 98.7
[2017-11-29] MEDS ORDERED: AMOXIC-POT CLAV 875-125MG 1 EACH TAB PO STA (12:05)
[2017-11-29] MEDS ORDERED: BENZONATATE 100 MG CAP PO STA (12:05)
[2017-11-29] MEDS ORDERED: ACETAMINOPHEN TAB 325 MG TAB PO STA (12:05)
[2017-11-29] MEDS ORDERED: AMOXIC-POT CLAV 875MG STARTER 2 EACH TABLET PO STA (12:05)
[2017-11-29] MEDS ORDERED: LORATADINE-PSEUDOEPH 5-120 MG 1 EACH TAB.ER.12H PO STA (12:05)
[2017-11-29] MEDS ORDERED: Acetaminophen-Codeine 300-30mg TAB PO STA (12:06)
--- NOTE | 2017-11-29 12:06 | ED ---
General Adult HPI - General Chief complaint: Upper Respiratory Infection Stated complaint: Fever Time Seen by Provider: 11/29/17 11:42 Source: patient, RN notes reviewed, old records reviewed Mode of arrival: ambulatory Limitations: no limitations - History of Present Illness Initial comments: This is a 42-year-old female to the ER for evaluation, patient but he was complaints including fever bilateral earaches and sore throat. Patient is recent travel history no sick contacts. Denies any recent history of similar medical issues. Patient takes no medications. She states fever 2 days worsening. Sore throat times one day worsening - Related Data Home Medications Medication Instructions Recorded Confirmed Acetaminophen Tab [Tylenol Tab] 650 mg PO Q6H PRN 09/16/17 09/16/17 diphenhydrAMINE HCL [Benadryl] 25 mg PO DAILY PRN 09/16/17 09/16/17 Previous Rx's Medication Instructions Recorded Oseltamivir [Tamiflu] 75 mg PO Q12HR 5 Days cap 09/16/17 Amoxic-Pot Clav 875-125Mg 1 tab PO Q12HR #20 tablet 11/29/17 [Augmentin 875-125] Benzonatate [Tessalon Perles] 100 mg PO TID PRN #30 capsule 11/29/17 Cetirizine HCl/Pseudoephedrine 1 each PO BID #20 tab.er.12h 11/29/17 [Zyrtec-D Tablet] Fluticasone Propionate [Flonase 1 spray EA NOSTRIL BID #1 bottle 11/29/17 Allergy Relief] Allergies Allergy/AdvReac Type Severity Reaction Status Date / Time aspirin Allergy Anaphylaxis Verified 11/29/17 11:32 venom-honey bee Allergy Anaphylaxis Verified 11/29/17 11:32 [bee venom (honey bee)] Review of Systems ROS Statement: Those systems with pertinent positive or pertinent negative responses have been documented in the HPI. ROS Other: All systems not noted in ROS Statement are negative. Past Medical History Past Medical History: Asthma, Thyroid Disorder Additional Past Medical History / Comment(s): WAS CATEGORIZED A PREMIE DUE TO LOW WEIGHT History of Any Multi-Drug Resistant Organisms: None Reported Additional Past Surgical History / Comment(s): D&C X3 Past Psychological History: Anxiety Smoking Status: Never smoker Past Alcohol Use History: Rare Past Drug Use History: None Reported General Exam Limitations: no limitations General appearance: alert, in no apparent distress Head exam: Present: atraumatic, normocephalic, normal inspection Eye exam: Present: normal appearance, PERRL, EOMI. Absent: scleral icterus, conjunctival injection, periorbital swelling ENT exam: Present: normal exam, mucous membranes moist Neck exam: Present: normal inspection. Absent: tenderness, meningismus, lymphadenopathy Respiratory exam: Present: normal lung sounds bilaterally. Absent: respiratory distress, wheezes, rales, rhonchi, stridor Cardiovascular Exam: Present: regular rate, normal rhythm, normal heart sounds. Absent: systolic murmur, diastolic murmur, rubs, gallop, clicks GI/Abdominal exam: Present: soft, normal bowel sounds. Absent: distended, tenderness, guarding, rebound, rigid Extremities exam: Present: normal inspection, full ROM, normal capillary refill. Absent: tenderness, pedal edema, joint swelling, calf tenderness Back exam: Present: normal inspection Neurological exam: Present: alert, oriented X3, CN II-XII intact Psychiatric exam: Present: normal affect, normal mood Skin exam: Present: warm, dry, intact, normal color. Absent: rash Course Vital Signs 11/29/17 11:30 Temperature 98.7 F Pulse Rate 72 Respiratory 20 Rate Blood Pressure 123/70 O2 Sat by Pulse 98 Oximetry Medical Decision Making - Medical Decision Making 42 female the ER for evaluation of fever sore throat, positive sinusitis on exam , we'll treat with antibiotics and discharged home Disposition Clinical Impression: Sinusitis, Upper respiratory infection Disposition: HOME SELF-CARE Condition: Good Instructions: Upper Respiratory Infection in Children (ED), Otitis Media (ED), Rhinosinusitis (ED) Prescriptions: Amoxic-Pot Clav 875-125Mg [Augmentin 875-125] 1 tab PO Q12HR #20 tablet Benzonatate [Tessalon Perles] 100 mg PO TID PRN #30 capsule PRN Reason: Cough Cetirizine HCl/Pseudoephedrine [Zyrtec-D Tablet] 1 each PO BID #20 tab.er.12h Fluticasone Propionate [Flonase Allergy Relief] 1 spray EA NOSTRIL BID #1 bottle Is patient prescribed a controlled substance at d/c from ED?: No Referrals: None,Stated [Primary Care Provider] - 1-2 days
[2017-11-29] MEDS: IBUPROFEN 800 MG TAB PO STA ×2 (12:18→12:19)
--- NOTE | 2017-12-03 03:38 | CDI ---
Documentation Clarification OP Dear Watson MILLAN, DO Please do addendum to ED report for HPI , Physical exam and MDM. Thank you, Sissy Abrams [employer] Officer If you have any question, Please contact coding analyst at [phone] [facility]
== END 2017-11-29 12:25 | disposition home or self-care (01) ==
LOC: EC 11:28
DX: J32.9 Chronic sinusitis, unspecified (principal); J06.9 Acute upper respiratory infection, unspecified; Z88.6 Allergy status to analgesic agent; Z91.030 Bee allergy status; Z53.29 Procedure and treatment not carried out because of patient's decision for other reasons
CPT/HCPCS: 99283

== ENCOUNTER 2018-01-10 22:46 | Emergency (ER) | payer OTHER ==
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
[2018-01-11 00:16] VITALS: BP 110/55; PULSE 76; RESP 18; TEMP 97
== END 2018-01-11 00:16 | disposition home or self-care (01) ==
LOC: EC 22:46
DX: F41.9 Anxiety disorder, unspecified (principal); Z88.6 Allergy status to analgesic agent; Z91.030 Bee allergy status
CPT/HCPCS: 93005; 99285